=== PATIENT | female | born 1990 | race African-American/Black ===

== ENCOUNTER 2020-08-08 19:34 | Emergency (ER) | payer MEDICAID ==
[~2020-08-08] VITALS: Ht 157.5 cm; Wt 97.5 kg
[2020-08-08] MEDS ORDERED: Ketorolac 30mg Inj IV ONE (20:00)
--- NOTE | 2020-08-08 20:00 | NUR ---
Patient arrived to ER via ambulatory c/o abdominal pain since 1 month ago no radiation , patient says after she got some esthetic surgeries the pain begun . Pte also present a mass in the abdomen . New orders received from EDP and carried out. All procedures were explain to the patient . Patient verbalized understanding. . Safety and comfort measures taken: bed set in low position, frequent rounds, call light within reach. Will continue monitoring the patient during the sift.
--- NOTE | 2020-08-08 20:15 | Emergency Room Report ---
History of Present Illness General Chief Complaint: To Be Triaged Source: Patient Present Illness HPI Patient presents with mass no left upper abdomen. She had a tummy tuck and breast augmentation done May 27. There was no liposuction done on her abdomen at that time. However there was liposuction done in the posterior area. She saw her doctor in follow-up in he said he thought it would get better. It seems to have persisted and possibly gotten worse. She complains of 8/10 pain at this time in that area. She has to walk hunched over. The pain does not radiate. She denies any nausea, vomiting or diarrhea. There is no dysuria. She denies fevers or chills. Her last menstruation was the end of June and she is due at this time. She apparently she took a test this morning that was negative. She is extremely anxious about the mass as she is looked up on [employer] the possible causes. The patient states that after the operation She was advised to keep on the corset. She removed this at one point because it felt that it was exerting undue pressure on the area of the operation in the suprapubic area. She states that after the breast augmentation there was some milky discharge from her breasts. This is stopped. She does have a 1-year-old at home. She was breast-feeding until the child was 4 months old. Patient denies exposure to Covid positive contacts. No sore throat, chest pain, palpitations, shortness of breath, joint pain, rashes, visual changes, dizziness, headache. Allergies: Coded Allergies: No Known Allergies (Unverified , 08/08/20) COVID-19 Screening Contact w/high risk pt: No Experienced COVID-19 symptoms?: No COVID-19 Testing performed BREAK OFF WORKER: No Patient History Past Medical History: see triage record Past Surgical History: other - liposuction and breast augmentation 05/27/20 Social History: Denies: smoking Social History Narrative Has a child at home Last Menstrual Period: at the end of jun Now: No Reviewed Nursing Documentation: PMH: Agreed; PSxH: Agreed Review of Systems All Other Systems: negative except mentioned in HPI Physical Exam Vital Signs Date Time Temp Pulse Resp B/P (MAP) Pulse Ox O2 Delivery O2 Flow Rate FiO2 08/08/20 19:40 98.1 78 18 128/78 (95) 97 Room Air Sp02 EP Interpretation: reviewed, normal General Appearance: well appearing, no apparent distress, GCS 15 Head: normocephalic Eyes: bilateral eye normal inspection, bilateral eye PERRL, bilateral eye EOMI ENT: moist mucus membranes Neck: supple Respiratory: lungs clear, normal breath sounds, other - Breast augmentation none tender and appropriate symmetry Cardiovascular #1: regular rate, rhythm Cardiovascular #2: 2+ radial (R) Gastrointestinal: normal bowel sounds, non-distended, mass - L upper and mid abdomen, overweight Genitourinary: no CVA tenderness Musculoskeletal: back normal, normal range of motion, gait/station normal Neurologic: alert, oriented x3, grossly normal Psychiatric: mood/affect normal Skin: warm/dry, other - well healed bikini scar Medical Decision Making Diagnostic Impression: Primary Impression: Abdominal wall mass Additional Impression: Post-operative complication Qualified Codes: L76.82 - Other postprocedural complications of skin and subcutaneous tissue ER Course Patient presents with a tender abdominal mass post tummy tuck, liposuction and breast augmentation May 27. Differential includes seroma, abscess, cellulitis, hernia, foreign body amongst others. Evaluation with labs and CT of the abdomen. Patient treated with Toradol. Labs unremarkable. CT of the abdomen with mass identified without evidence of hernia. There is some surrounding stranding. Based on labs and physical exam acute infection is excluded. This leaves the possibility of possible seroma versus hematoma. Discussed findings with patient. Discussed the need for follow-up visit with her surgeon. Patient stable for outpatient observation and treatment. Laboratory Tests Test 08/08/20 20:00 White Blood Count 9.8 K/UL (4.8-10.8) Red Blood Count 4.63 M/UL (4.20-5.40) Hemoglobin 12.4 G/DL (12.0-16.0) Hematocrit 38.7 % (37.0-47.0) Mean Corpuscular Volume 84 FL (80-99) Mean Corpuscular Hemoglobin 26.9 PG (27.0-31.0) L Mean Corpuscular Hemoglobin Concent 32.2 G/DL (32.0-36.0) Red Cell Distribution Width 15.4 % (11.6-14.8) H Platelet Count 408 K/UL (150-450) Mean Platelet Volume 7.6 FL (6.5-10.1) Neutrophils (%) (Auto) 59.0 % (45.0-75.0) Lymphocytes (%) (Auto) 31.8 % (20.0-45.0) Monocytes (%) (Auto) 6.5 % (1.0-10.0) Eosinophils (%) (Auto) 1.5 % (0.0-3.0) Basophils (%) (Auto) 1.2 % (0.0-2.0) Prothrombin Time 10.6 SEC (9.30-11.50) Prothrombin Time INR 1.0 (0.9-1.1) Activated Partial Thromboplast Time 25 SEC (23-33) Urine Color Pale yellow Urine Appearance Cloudy Urine pH 5 (4.5-8.0) Urine Specific Lorraine 1.020 (1.005-1.035) Urine Protein Negative (NEGATIVE) Urine Glucose (UA) Negative (NEGATIVE) Urine Ketones 1+ (NEGATIVE) H Urine Blood Negative (NEGATIVE) Urine Nitrite Negative (NEGATIVE) Urine Bilirubin Negative (NEGATIVE) Urine Urobilinogen Normal MG/DL (0.0-1.0) Urine Leukocyte Esterase 2+ (NEGATIVE) H Urine RBC 0-2 /HPF (0 - 2) Urine WBC 2-4 /HPF (0 - 2) Urine Squamous Epithelial Cells Many /LPF (NONE/OCC) H Urine Bacteria Many /HPF (NONE) H Urine HCG, Qualitative Negative (NEGATIVE) Sodium Level 142 MMOL/L (136-145) Potassium Level 3.9 MMOL/L (3.5-5.1) Chloride Level 106 MMOL/L (98-107) Carbon Dioxide Level 28 MMOL/L (21-32) Anion Gap 8 mmol/L (5-15) Blood Urea Nitrogen 13 mg/dL (7-18) Creatinine 1.0 MG/DL (0.55-1.30) Estimated Glomerular Filtration Rate > 60 mL/min (>60) Glucose Level 78 MG/DL (74-106) Calcium Level 8.6 MG/DL (8.5-10.1) Total Bilirubin 0.2 MG/DL (0.2-1.0) Aspartate Amino Transferase (AST) 14 U/L (15-37) L Alanine Aminotransferase (ALT) 14 U/L (12-78) Alkaline Phosphatase 74 U/L (46-116) Total Protein 7.8 G/DL (6.4-8.2) Albumin 3.3 G/DL (3.4-5.0) L Globulin 4.5 g/dL Albumin/Globulin Ratio 0.7 (1.0-2.7) L Lipase 118 U/L (73-393) CT/MRI/US Diagnostic Results CT/MRI/US Diagnostic Results : Imaging Test Ordered: Abdomen and pelvis Impression IMPRESSION: 1. There is a 13 cm cystic structure within the ventral abdominal wall above the level of the umbilicus of indeterminate sterility and may represent a postoperative seroma, cyst or abscess. Targeted ultrasound with aspiration and fluid analysis may be performed as clinically indicated. 2. Diffuse skin thickening and fat stranding within the subcutaneous adipose tissues. Recommend correlation with possible surgical intervention such as liposuction. Last Vital Signs Date Time Temp Pulse Resp B/P (MAP) Pulse Ox O2 Delivery O2 Flow Rate FiO2 08/08/20 21:50 98.3 18 119/77 97 Room Air 08/08/20 19:40 78 Status: improved Disposition: HOME, SELF-CARE Condition: Improved Scripts Ibuprofen* (MOTRIN*) 600 Mg Tablet 600 MG ORAL Q6H PRN for FOR PAIN, #20 TAB 0 Refills Prov: Rosendo Hull MD 08/08/20 Rosendo Hull MD Aug 08, 2020 20:15
--- NOTE | 2020-08-08 20:26 | NUR ---
Note chanda in ED - 08/08/20 at 2026 by RADHA belongings collected. list made. pt belongings placed in cabinet #3.
--- NOTE | 2020-08-08 20:26 | NUR ---
belongings collected. list made. pt belongings placed in cabinet #3.
[2020-08-08 20:31] LABS: BASOPHILS % (AUTO) 1.2 % (0.0-2.0); EOSINOPHILS % (AUTO) 1.5 % (0.0-3.0); HEMATOCRIT 38.7 % (37.0-47.0); HEMOGLOBIN 12.4 G/DL (12.0-16.0); LYMPHOCYTES % (AUTO) 31.8 % (20.0-45.0); MEAN CORPUSCULAR VOLUME 84 FL (80-99); MONOCYTES % (AUTO) 6.5 % (1.0-10.0); PLATELET COUNT 408 K/UL (150-450); RED BLOOD COUNT 4.63 M/UL (4.20-5.40); RED CELL DISTRIBUTION WIDTH 15.4 % (11.6-14.8); WHITE BLOOD COUNT 9.8 K/UL (4.8-10.8)
[2020-08-08 20:36] LABS: APPEARANCE,URINE CLOUDY; BILIRUBIN, URINE NEGATIVE (NEGATIVE); COLOR,URINE PALE YELLOW; GLUCOSE, URINE (UA) NEGATIVE (NEGATIVE); KETONES,URINE 1+ (NEGATIVE); LEUKOCYTE ESTERASE ,URINE 2+ (NEGATIVE); NITRITE,URINE NEGATIVE (NEGATIVE); PH,URINE 5 (4.5-8.0); PROTEIN,URINE NEGATIVE (NEGATIVE); UROBILINOGEN,URINE NORMAL MG/DL (0.0-1.0)
[2020-08-08 20:49] LABS: ANION GAP 8 mmol/L (5-15); BLOOD UREA NITROGEN 13 mg/dL (7-18); CALCIUM 8.6 MG/DL (8.5-10.1); CARBON DIOXIDE 28 MMOL/L (21-32); CHLORIDE 106 MMOL/L (98-107); POTASSIUM 3.9 MMOL/L (3.5-5.1); SODIUM 142 MMOL/L (136-145)
[2020-08-08 20:53] LABS: ALANINE AMINOTRANSFERASE 14 U/L (12-78); ALBUMIN 3.3 G/DL (3.4-5.0); ALBUMIN/GLOBULIN RATIO 0.7 (1.0-2.7); ALKALINE PHOSPHATASE 74 U/L (46-116); ASPARTATE AMINO TRANSFERASE 14 U/L (15-37); BILIRUBIN,TOTAL 0.2 MG/DL (0.2-1.0)
--- NOTE | 2020-08-08 21:22 | Diagnostic Imaging Report ---
EXAM: CT Abdomen and Pelvis Without Intravenous Contrast CLINICAL HISTORY: ABD PAIN TECHNIQUE: Axial computed tomography images of the abdomen and pelvis without intravenous contrast. CTDI is 13.6 mGy and DLP is 701.1 mGy-cm. One or more of the following dose reduction techniques were used: automated exposure control, adjustment of the mA and/or kV according to patient size, use of iterative reconstruction technique. COMPARISON: No relevant prior studies available. FINDINGS: Lung bases: Unremarkable. No mass. No consolidation. ABDOMEN: Liver: Unremarkable. Gallbladder and bile ducts: Unremarkable. No calcified stones. No ductal dilation. Pancreas: Unremarkable. No ductal dilation. Spleen: Unremarkable. No splenomegaly. Adrenals: Unremarkable. No mass. Kidneys and ureters: Unremarkable. No obstructing stones. No hydronephrosis. Stomach and bowel: Unremarkable. No obstruction. No mucosal thickening. PELVIS: Appendix: No findings to suggest acute appendicitis. Bladder: Unremarkable. No stones. Reproductive: Unremarkable as visualized. ABDOMEN and PELVIS: Intraperitoneal space: Unremarkable. No free air. No significant fluid collection. Bones/joints: No acute fracture. No dislocation. Osteitis condensans ilii. Soft tissues: There is a large 13.5 x 13.2 x 7.0 cm (TR, cc, AP) cystic structure within the ventral abdominal wall above the level of the umbilicus. There is mild mass-effect upon the adjacent rectus abdominis musculature without evidence of invasion. Diffuse skin thickening and fat stranding within the subcutaneous adipose tissues particularly within the dorsal and lateral aspects of the abdomen and gluteal regions. Bilateral breast implants. Vasculature: Unremarkable. No abdominal aortic aneurysm. Lymph nodes: Unremarkable. No enlarged lymph nodes. IMPRESSION: 1. There is a 13 cm cystic structure within the ventral abdominal wall above the level of the umbilicus of indeterminate sterility and may represent a postoperative seroma, cyst or abscess. Targeted ultrasound with aspiration and fluid analysis may be performed as clinically indicated. 2. Diffuse skin thickening and fat stranding within the subcutaneous adipose tissues. Recommend correlation with possible surgical intervention such as liposuction.
[2020-08-08 21:42] VITALS: BP 117/85
[2020-08-08] MEDS ORDERED: IBUPROFEN600 M1 ORAL (21:43)
[2020-08-08 21:50] VITALS: BP 119/77
--- NOTE | 2020-08-08 21:50 | NUR ---
Patient was discharge home as EDP ordered. All vital signs were taken within normal range. Patient . All prescriptions and instructions were given to the patient . Patient verbalized understanding. patient left the hospital in stable condition .
== END 2020-08-08 21:50 | disposition home or self-care (01) ==
LOC: EMR 20:15
DX: R19.02 Left upper quadrant abdominal swelling, mass and lump (principal); L76.82 Other postprocedural complications of skin and subcutaneous tissue
CPT/HCPCS: 36415; 74176; 80053; 81003; 81025; 83690; 85025; 85610; 85730; 87086; 96374; J1885; Z7502; 99284